=== PATIENT | female | born 1985 | race Two or more races ===

== ENCOUNTER → 2017-01-09 | Outpatient (CLI) | payer SELFPAY | LOC: RAD 16:41 | PROVIDERS: ATTEND Nurse Practitioner Women's Health | DX: Z34.82 Encounter for supervision of other normal pregnancy, second trimester (principal) | CPT/HCPCS: 76805 ==

== ENCOUNTER 2017-01-19 11:19 | Emergency (ER) | payer SELFPAY ==
--- NOTE | 2017-01-19 11:36 | ER Document Report ---
ED Medical Screen (RME) - General Stated Complaint: FLU LIKE SYPTOMS Time seen by provider: 11:30 Mode of Arrival: Ambulatory Notes: Marrti used for translation, patient complains of fever, cough and a bad cold for 3 days. states she did receive the flu vaccine about 15 days ago. Patient is 4 months but denies abdominal pain or vaginal bleeding. States she vomited about 6 times yesterday, but only once today. I have greeted and performed a rapid initial assessment of this patient. A comprehensive ED assessment and evaluation of the patient, analysis of test results and completion of the medical decision making process will be conducted by additional ED providers. TRAVEL OUTSIDE OF THE [place] IN LAST 30 DAYS: No - Related Data Allergies/Adverse Reactions: latex [Latex] Allergy (Unknown, Verified 07/24/14 23:00) unknown Past Medical History - Past Medical History Cardiac Medical History: Reports: Hx Hypertension Denies: Hx Pulmonary Embolism, Hx Heart Murmur Pulmonary Medical History: Denies: Hx Asthma, Hx Sleep Apnea, Hx Tuberculosis Neurological Medical History: Denies: Hx Cerebrovascular Accident, Hx Seizures Endocrine Medical History: Denies: Hx Hyperthyroidism, Hx Hypothyroidism Renal/ Medical History: Denies: Hx Kidney Stones, Hx Ovarian Cysts Malignancy Medical History: Denies: Hx Breast Cancer, Hx Cervical Cancer, Hx Ovarian Cancer GI Medical History: Denies: Hx Gastroesophageal Reflux Disease, Hx Hiatal Hernia , Hx Ulcer Musculoskeltal Medical History: Denies Hx Fibromyalgia Psychiatric Medical History: Denies: Hx Bipolar Disorder, Hx Depression, Hx Post Traumatic Stress Disorder , Hx Schizophrenia Traumatic Medical History: Denies: Hx Fractures Infectious Medical History: Denies: Hx HIV Past Surgical History: Reports: Hx Section - Immunizations Immunizations up to date: Yes Physical Exam - Vital signs Vitals: Temp Pulse Resp BP Pulse Ox 98.6 F 127 H 19 144/83 H 97 01/19/17 11:01/19/17 11:01/19/17 11:01/19/17 11:01/19/17 11:29 - Respiratory Respiratory status: No respiratory distress Breath sounds: Normal Course - Vital Signs Vital signs: Temp Pulse Resp BP Pulse Ox 98.6 F 127 H 19 144/83 H 97 01/19/17 11:29 01/19/17 11:29 01/19/17 11:29 01/19/17 11:29 01/19/17 11:29
[2017-01-19] MEDS ORDERED: NORMAL SALINE 1000 ML 1,000 ML IV ONE ×2 (12:32→14:38)
--- NOTE | 2017-01-19 12:34 | ER Document Report ---
ED General - General Chief Complaint: Flu Symptoms Stated Complaint: FLU LIKE SYPTOMS Mode of Arrival: Ambulatory Information source: Patient Notes: Patient presents complaining of nausea, vomiting, cough and cold symptoms. Patient states she has multiple sick contacts in her household with similar symptoms. Patient is currently 16 weeks . Patient denies any chest pain, abdominal pain, back pain, vaginal bleeding or vaginal discharge. Patient denies any urinary symptoms. Patient denies any recent travel, bedrest , or immobilization. Patient denies any dyspnea. Patient states she has vomited one time today. Patient does report a history of hypertension prior to her . Patient states that she was on medication for blood pressure but when she became her doctor advised her to discontinue this medication. Patient denies any history of preeclampsia or eclampsia. TRAVEL OUTSIDE OF THE [place] IN LAST 30 DAYS: No - HPI Onset: Other - 3 days Onset/Duration: Persistent Pain Level: Denies Associated symptoms: Body/muscle aches, Nonproductive cough, Fever - Subjective , Headache, Nausea, Vomiting Exacerbated by: Denies Relieved by: Denies Similar symptoms previously: Yes Recently seen / treated by doctor: No - Related Data Allergies/Adverse Reactions: latex [Latex] Allergy (Unknown, Verified 07/24/14 23:00) unknown Past Medical History - General Information source: Patient Last Menstrual Period: 16 weeks - Social History Smoking Status: Never Smoker Chew tobacco use (# tins/day): No Frequency of alcohol use: None Drug Abuse: None Occupation: none Lives with: Family Family History: Reviewed & Not Pertinent Patient has suicidal ideation: No Patient has homicidal ideation: No - Past Medical History Cardiac Medical History: Reports: Hx Hypertension Denies: Hx Pulmonary Embolism, Hx Heart Murmur Pulmonary Medical History: Denies: Hx Asthma, Hx Sleep Apnea, Hx Tuberculosis Neurological Medical History: Denies: Hx Cerebrovascular Accident, Hx Seizures Endocrine Medical History: Denies: Hx Hyperthyroidism, Hx Hypothyroidism Renal/ Medical History: Denies: Hx Kidney Stones, Hx Ovarian Cysts, Hx Peritoneal Dialysis Malignancy Medical History: Denies: Hx Breast Cancer, Hx Cervical Cancer, Hx Ovarian Cancer GI Medical History: Denies: Hx Gastroesophageal Reflux Disease, Hx Hiatal Hernia , Hx Ulcer Musculoskeltal Medical History: Denies Hx Fibromyalgia Psychiatric Medical History: Denies: Hx Bipolar Disorder, Hx Depression, Hx Post Traumatic Stress Disorder , Hx Schizophrenia Traumatic Medical History: Denies: Hx Fractures Infectious Medical History: Denies: Hx HIV Past Surgical History: Reports: Hx Section - Immunizations Immunizations up to date: Yes Review of Systems - Review of Systems Constitutional: Fever - Subjective. denies: Chills EENT: Nose congestion. denies: Throat pain Cardiovascular: No symptoms reported. denies: Chest pain, Palpitations, Heart racing, Syncope, Dizziness Respiratory: Cough. denies: Short of breath Gastrointestinal: Nausea, Vomiting. denies: Abdominal pain, Diarrhea, Poor appetite Genitourinary: No symptoms reported. denies: Dysuria, Flank pain, Hematuria Female Genitourinary: . denies: Vaginal discharge, Vaginal bleeding Musculoskeletal: No symptoms reported. denies: Back pain, Neck pain Skin: No symptoms reported. denies: Rash Hematologic/Lymphatic: No symptoms reported Neurological/Psychological: Headaches Physical Exam - Vital signs Vitals: Temp Pulse Resp BP Pulse Ox 98.6 F 127 H 19 144/83 H 97 01/19/17 11:29 01/19/17 11:29 01/19/17 11:29 01/19/17 11:29 01/19/17 11:29 - General General appearance: Appears well, Alert In distress: None - HEENT Head: Normocephalic, Atraumatic Eyes: Normal Conjunctiva: Normal Ears: Normal External canal: Normal Tympanic membrane: Normal Sinus: Normal Nasal: Clear rhinorrhea Mouth/Lips: Normal Mucous membranes: Normal Pharynx: Normal. No: Erythema, Exudate, Tonsillar hypertrophy Neck: Normal, Supple. No: Lymphadenopathy - Respiratory Respiratory status: No respiratory distress Chest status: Nontender Breath sounds: Nonproductive cough. No: Rales, Rhonchi, Stridor, Wheezing Chest palpation: Normal - Cardiovascular Rhythm: Tachycardia Heart sounds: S1 appreciated, S2 appreciated Murmur: No - Abdominal Inspection: Gravid female Distension: No distension Bowel sounds: Normal Tenderness: Nontender Organomegaly: No organomegaly - Back Back: Normal, Nontender. No: CVA tenderness - Extremities General upper extremity: Normal inspection, Normal ROM General lower extremity: Normal inspection, Normal ROM - Neurological Neuro grossly intact: Yes [place] Coma Scale Eye Opening: Spontaneous [place] Coma Scale Verbal: Oriented [place] Coma Scale Motor: Obeys Commands [place] Coma Scale Total: 15 - Psychological Associated symptoms: Normal affect, Normal mood - Skin Skin Temperature: Warm Skin Moisture: Dry Skin Color: Normal Course - Re-evaluation Re-evalutation: 01/19/17 16:19 Patient's heart rate down to 110s, patient continues with occasional cough. Consulted with Dr. Szymanski regarding patient presentation and diagnostic tests. Unable to appreciate heart tones at bedside with Doppler, Dr. Szymanski to bedside, unable to assess heart tones with equipment, formal ultrasound ordered. 01/19/17 17:[address] Strickland and discussed patient's diagnostic test results, presentation and vital signs. Does not recommend any antihypertensive medication at this time. Does want patient to follow-up in the office tomorrow morning for blood pressure recheck as well as being given supplies so that she can collect a [address] Strickland says that the office does have the supplies and can give them to her tomorrow when she presents. No additional tests recommended this time Discussed planning care with patient, discussed worsening signs or symptoms that patient should return to medially for. Patient verbalized that she does intend to follow-up with the [facility] office tomorrow as planned for recheck. - Vital Signs Vital signs: Temp Pulse Resp BP Pulse Ox 98.6 F 109 H 18 146/76 H 98 01/19/17 11:29 01/19/17 15:37 01/19/17 15:37 01/19/17 15:37 01/19/17 15:37 - Laboratory Result Diagrams: 01/19/17 13:05 01/19/17 13:05 Laboratory results interpreted by me: 01/19/17 01/19/17 01/19/17 12:57 13:05 13:05 Hgb 11.7 L Hct 34.1 L RDW 17.2 H Seg Neutrophils % 82.5 H Lymphocytes % 11.9 L Potassium 3.5 L BUN 6 L Creatinine 0.38 L Glucose 123 H Beta HCG, Quant 16934.00 H Urine Protein 100 H Urine Glucose (UA) 50 H Urine Ketones TRACE H Urine Blood MODERATE H Urine Urobilinogen 2.0 H Ur Leukocyte Esterase TRACE H Urine Ascorbic Acid 40 H Labs- Entire Visit 01/19/17 01/19/17 01/19/17 12:57 12:57 13:05 WBC 7.6 RBC 4.09 Hgb 11.7 L Hct 34.1 L MCV 83 MCH 28.6 MCHC 34.3 RDW 17.2 H Plt Count 253 Seg Neutrophils % 82.5 H Lymphocytes % 11.9 L Monocytes % 5.2 Eosinophils % 0.0 Basophils % 0.4 Absolute Neutrophils 6.3 Absolute Lymphocytes 0.9 Absolute Monocytes 0.4 Absolute Eosinophils 0.0 Absolute Basophils 0.0 Sodium Potassium Chloride Carbon Dioxide Anion Gap BUN Creatinine Est GFR ( Amer) Est GFR (Non-Af Amer) Glucose Calcium Total Bilirubin Direct Bilirubin AST ALT Alkaline Phosphatase Total Protein Albumin Lipase Beta HCG, Quant Total Beta HCG Urine Color YELLOW Urine Appearance SLIGHTLY-CLOUDY Urine pH 5.0 Ur Specific [place] 1.032 Urine Protein 100 H Urine Glucose (UA) 50 H Urine Ketones TRACE H Urine Blood MODERATE H Urine Nitrite NEGATIVE Urine Bilirubin NEGATIVE Urine Urobilinogen 2.0 H Ur Leukocyte Esterase TRACE H Urine WBC (Auto) 5 Urine RBC (Auto) 20 Urine Bacteria (Auto) 2+ Squamous Epi Cells Auto 12 Urine Mucus (Auto) MOD Urine Ascorbic Acid 40 H Influenza A (Rapid) NEGATIVE Influenza B (Rapid) NEGATIVE 01/19/17 13:05 WBC RBC Hgb Hct MCV MCH MCHC RDW Plt Count Seg Neutrophils % Lymphocytes % Monocytes % Eosinophils % Basophils % Absolute Neutrophils Absolute Lymphocytes Absolute Monocytes Absolute Eosinophils Absolute Basophils Sodium 138.3 Potassium 3.5 L Chloride 103 Carbon Dioxide 22 Anion Gap 13 BUN 6 L Creatinine 0.38 L Est GFR ( Amer) > 60 Est GFR (Non-Af Amer) > 60 Glucose 123 H Calcium 9.9 Total Bilirubin 0.4 Direct Bilirubin 0.0 AST 26 ALT 30 Alkaline Phosphatase 72 Total Protein 7.3 Albumin 4.1 Lipase 28.8 Beta HCG, Quant 78544.00 H Total Beta HCG POSITIVE Urine Color Urine Appearance Urine pH Ur Specific [place] Urine Protein Urine Glucose (UA) Urine Ketones Urine Blood Urine Nitrite Urine Bilirubin Urine Urobilinogen Ur Leukocyte Esterase Urine WBC (Auto) Urine RBC (Auto) Urine Bacteria (Auto) Squamous Epi Cells Auto Urine Mucus (Auto) Urine Ascorbic Acid Influenza A (Rapid) Influenza B (Rapid) 01/19/17 17:58 01/19/17 18:13 - Diagnostic Test Radiology reviewed: Reports reviewed Discharge - Discharge Clinical Impression: Dehydration, Elevated blood pressure reading UTI (urinary tract infection) Qualifiers: Urinary tract infection type: site unspecified Hematuria presence: with hematuria Qualified Code(s): N39.0 - Urinary tract infection, site not specified Upper respiratory infection Qualifiers: URI type: unspecified URI Qualified Code(s): J06.9 - Acute upper respiratory infection, unspecified Vomiting Qualifiers: Vomiting type: unspecified Vomiting Intractability: non-intractable Nausea presence: unspecified Qualified Code(s): R11.10 - Vomiting, unspecified Qualifiers: Weeks of gestation: 16 weeks Qualified Code(s): Z3A.16 - 16 weeks gestation of Condition: Stable Disposition: HOME, SELF-CARE Additional Instructions: Return immediately for any new or worsening symptoms Follow-up with [facility], Dr. Strickland, tomorrow for blood pressure recheck and to be given supplies for an outpatient 24-hour urine collection. Please let the office staff know that your blood pressure was elevated and that you have protein in your urine. Also let the office staff know that Dr. Strickland recommended that you come in tomorrow and that this visit is an ER follow-up. Followup with your primary care provider, call tomorrow to make a followup appointment Stay well-hydrated Urine culture is pending, we will call if you need any different treatment. You may take Tylenol [id number] as directed for headache pain. You may take Benadryl [id number] as directed to help with vomiting and nasal congestion. VOMITING: Vomiting (or nausea without vomiting) can be caused by many other different problems. It can mean that something's wrong with the stomach, such as ulcers or inflammation or the intestinal tract, such as appendicitis. But it can also be a symptom of a problem that has nothing to do with the stomach or intestines. Vomiting is common with severe headaches, earaches, tonsillitis, and kidney infections, etc. We see it with pneumonia or heart attacks. Drugs can cause nausea and vomiting. Many abdominal problems cause vomiting; for example, gallstones, kidney stones, pancreatitis, and intestinal obstruction ( blocked bowels). In most cases, curing the vomiting depends on fixing the problem that caused it. For temporary relief, we may use an anti-nausea medicine. For home use, we can prescribe suppositories, chewable pills, pills that dissolve in the mouth, or liquid anti-nausea drugs. If the vomiting seems to be caused by a problem in the stomach, acid-suppressing drugs may be prescribed as well. It's important to avoid dehydration. Sip small amounts of clear liquids ( soft drinks, tea, broth, etc) . Try to take fluids frequently even if you are vomiting to prevent dehydration. Take increasing amounts of fluid and when liquids are being consumed successfully, advance to small amounts of bland food (toast, soups, mashed potatoes, etc.) until you are able to resume a regular diet. Avoid aspirin, tobacco, and alcohol. If the vomiting worsens, if the problem that's making you vomit worsens, or if there's evidence of bleeding in the stomach (such as black, tarry stool, or bloody or black vomit), you should return immediately. Also, return if abdominal pain worsens or becomes localized to one area or you develop high fever. Call your doctor if you aren't improved in 24 hours. VIRAL SYNDROME: The physician has diagnosed a viral infection. Viruses not only cause "colds," but can cause many different symptoms including generalized aching, fever, headache, cough, diarrhea, nausea, vomiting, and fatigue. The treatment, for the most part, is simply relief of symptoms. This means that antibiotics are usually not given. Rest, fluids, pain medications and, occasionally, medication for the specific symptoms that are most bothersome will be prescribed. Use good handwashing to avoid passing the virus to others. Shared toys should be cleaned with disinfectant. Clean the toilets, sinks, and counter surfaces in bathrooms. Launder clothing in hot water. Contact the physician if you develop any new or unusual symptoms such as severe headache, stiff neck, high fever, chest pain, productive cough, or shortness of breath. You should be rechecked if you don't see marked improvement within seven to 10 days. INTRAVENOUS (I V) FLUIDS: As part of your care today, you received intravenous (IV) fluids. IV fluids are administered to patients who are dehydrated or to those who have certain chemical (electrolyte) abnormalities that need correcting. FOLLOW-UP CARE: If you have been referred to a physician for follow-up care, call the physician s office for an appointment as you were instructed or within the next two days. If you experience worsening or a significant change in your symptoms, notify the physician immediately or return to the Emergency Department at any time for re-evaluation. Prescriptions: Cephalexin Monohydrate [Keflex 500 mg Capsule] 500 mg PO BID 7 Days Referrals: [facility] [Provider Group] - Follow up tomorrow PÉREZ STRICKLAND MD [ACTIVE STAFF] - Follow up tomorrow
[2017-01-19 13:24] LABS: ABSOLUTE LYMPHOCYTES (AUTO) 0.9 10^3/uL (0.5-4.7); ABSOLUTE MONOCYTES (AUTO) 0.4 10^3/uL (0.1-1.4); ABSOLUTE NEUT (AUTO) 6.3 10^3/uL (1.7-8.2); BASOPHILS % (AUTO) 0.4 % (0-2); HEMATOCRIT 34.1 % (36.0-47.0); HEMOGLOBIN 11.7 g/dL (12.0-15.5); LYMPHOCYTES % (AUTO) 11.9 % (13-45); MEAN CORPUSCULAR HEMOGLOBIN 28.6 pg (27.0-33.4); MEAN CORPUSCULAR HGB CONC 34.3 g/dL (32.0-36.0); MEAN CORPUSCULAR VOLUME 83 fl (80-97); MONOCYTES % (AUTO) 5.2 % (3-13); RED BLOOD COUNT 4.09 10^6/uL (3.72-5.28); RED CELL DISTRIBUTION WIDTH 17.2 % (11.5-14.0); SEGMENTED NEUTROPHILS % (AUTO) 82.5 % (42-78); WHITE BLOOD COUNT 7.6 10^3/uL (4.0-10.5)
[2017-01-19 13:33] LABS: APPEARANCE,URINE SLIGHTLY-CLOUDY; BILIRUBIN,URINE NEGATIVE (NEGATIVE); GLUCOSE, URINE 50 mg/dL (NEGATIVE); KETONES,URINE TRACE mg/dL (NEGATIVE); LEUKOCYTE ESTERASE,URINE TRACE (NEGATIVE); NITRITE,URINE NEGATIVE (NEGATIVE); PROTEIN,URINE 100 mg/dL (NEGATIVE); URINE SPECIFIC GRAVITY 1.032
[2017-01-19 13:42] LABS: ALANINE AMINOTRANSFERASE 30 U/L (9-52); ALBUMIN 4.1 g/dL (3.5-5.0); ALKALINE PHOSPHATASE 72 U/L (38-126); ANION GAP 13 (5-19); ASPARTATE AMINO TRANSFERASE 26 U/L (14-36); BILIRUBIN,TOTAL 0.4 mg/dL (0.2-1.3); BLOOD UREA NITROGEN 6 mg/dL (7-20); CALCIUM 9.9 mg/dL (8.4-10.2); CARBON DIOXIDE 22 mmol/L (22-30); CHLORIDE 103 mmol/L (98-107); CREATININE RESULT 0.38 mg/dL (0.52-1.25); GLUCOSE 123 mg/dL (75-110); LIPASE 28.8 U/L (23-300); POTASSIUM 3.5 mmol/L (3.6-5.0); SODIUM 138.3 mmol/L (137-145); TOTAL PROTEIN 7.3 g/dL (6.3-8.2)
[2017-01-19] MEDS ORDERED: POTASSIUM CHLORIDE 10 MEQ TABLET.SA PO ONE (17:58)
[2017-01-19 18:40] VITALS: BP 127/63
== END 2017-01-19 18:36 | disposition home or self-care (01) ==
LOC: ER 11:19
DX: O26.892 Other specified pregnancy related conditions, second trimester (principal); E86.0 Dehydration; J06.9 Acute upper respiratory infection, unspecified; O23.42 Unspecified infection of urinary tract in pregnancy, second trimester; R03.0 Elevated blood-pressure reading, without diagnosis of hypertension; R11.10 Vomiting, unspecified; Z3A.16 16 weeks gestation of pregnancy
CPT/HCPCS: 99284; 96360; 96361; 36415; 87086; 84702; 83690; 85025; 80053; 81001; 87804; 71020; 76815; J7030